=== PATIENT | female | born 1990 | race Caucasian/White ===

== ENCOUNTER 2018-11-26 17:01 | Emergency (ER) | payer OTHER ==
--- NOTE | 2018-11-26 17:09 | PDOC ---
Rapid Medical Evaluation Chief Complaint: Pain Time Seen by Provider: 11/26/18 17:07 Medical Evaluation: 11/26/18 17:07 HPI: L sided chest breast pain x2 weeks EXAM: deferred Orders: Nothing Discharge Disposition - Diagnosis Breast pain in female - Referrals - Patient Instructions - Post Discharge Activity
[2018-11-26 17:11] VITALS: BP 128/90; PULSE 89; TEMP 98.2; BMI 19.9
--- NOTE | 2018-11-26 17:51 | PDOC ---
History of Present Illness - General Chief Complaint: Pain Stated Complaint: BREAST PAIN Time Seen by Provider: 11/26/18 17:07 History Source: Patient - History of Present Illness Initial Comments: 11/26/18 19:28 Chief complaint: Left breast pain Patient 28-year-old female who is had about a month of left breast pain. No fever, shortness of breath, chest pain, not on control. Patient's last period was November 04. No recent travel and no family history of blood clots, DVT , PE GENERAL/CONSTITUTIONAL: No fever, weakness. dizziness HEAD, EYES, EARS, NOSE AND THROAT: No change in vision. No ear pain or discharge. No sore throat. CARDIOVASCULAR: No chest pain RESPIRATORY: No shortness of breath or cough GASTROINTESTINAL: No pain, nausea, vomiting, diarrhea or constipation GENITOURINARY: No dysuria MUSCULOSKELETAL: No neck or back pain SKIN: No rash, + left breast NEUROLOGIC: No headache, vertigo, loss of consciousness, or loss of sensation. GENERAL: The patient is awake, alert, and fully oriented, in no acute distress. HEAD: Normal with no signs of trauma. EYES: Pupils equal, round and reactive to light, sclera anicteric, conjunctiva clear. ENT: pharynx: no erythema, no exudate, uvula midline NECK: supple CHEST: clear, nontender, rest symmetrical, no palpable masses, no discharge from nipples, no erythema, mild tenderness on the lateral and inferior aspect of the breast, no rib pain or tenderness. Rr ABD: soft, nontender EXTREMITIES: Normal range of motion, no edema. NEUROLOGICAL: Normal speech, normal gait. SKIN: Warm, Dry 11/26/18 19:30 Past History - Past Medical History Allergies/Adverse Reactions: Allergies Allergy/AdvReac Type Severity Reaction Status Date / Time No Known Allergies Allergy Verified 11/26/18 17:08 COPD: No - Suicide/Smoking/Psychosocial Hx Smoking History: Never smoked Have you smoked in the past 12 months: No Information on smoking cessation initiated: No Hx Alcohol Use: No Drug/Substance Use Hx: No *Physical Exam - Vital Signs Last Vital Signs Temp Pulse Resp BP Pulse Ox 98.2 F 89 16 128/90 100 11/26/18 17:08 11/26/18 17:08 11/26/18 17:08 11/26/18 17:08 11/26/18 17:08 Medical Decision Making - Medical Decision Making 11/26/18 19:30 Patient with 1 month of left breast pain, which seems to be soft tissue pain, there is no other findings, no shortness of breath, patient's vitals are stable , no tachycardia, oxygenation is 100, patient is perc negative. Patient is unsure if she is , we discussed doing a test here but she has a test at home and felt more comfortable doing it at home. We had long conversation regarding regular checkups by DELICATESSEN DEPARTMENT MANAGER, she has not seen one in the 4 year she's been in the [facility]. He was explained to her that it would be very important for her to follow-up with DELICATESS[employer] DEPARTMENT MANAGER this coming week for evaluation, further diagnostics to make sure she doesn't have anything serious and get a mammogram, ultrasound to ensure she does not have breast cancer. There are no signs of Signs of infection. Discussed issues, findings, results, applicable medications and treatments and follow-up. All these were understood and all questions were answered *DC/Admit/Observation/Transfer Diagnosis at time of Disposition: Breast pain in female - Discharge Dispostion Disposition: HOME Condition at time of disposition: Stable - Referrals Referrals: Ruthy Villalpando MD [Staff Physician] - - Patient Instructions Additional Instructions: As discussed, you wanted to go home and do a test. And not have one done in the emergency department. Is very important for you to follow-up with her life consultant regarding her breast pain. It needs to be fully evaluated. The DELICATESSEN DEPARTMENT MANAGER will decide if you need a mammogram, ultrasound or other testing to make sure you do not have a serious problem or breast cancer - Post Discharge Activity
== END 2018-11-26 18:10 | disposition home or self-care (01) ==
LOC: JERFT 17:01
DX: N64.4 Mastodynia (principal)
CPT/HCPCS: 99281-25

== ENCOUNTER 2019-08-09 09:35 | Inpatient (IN) | payer OTHER ==
[2019-08-09] MEDS ORDERED: DINOPROSTONE 10 MG VAGINAL SUPPOSITORY VG ONE (10:15)
--- NOTE | 2019-08-09 10:38 | HP ---
Past Medical History - Admission Chief Complaint: Elective induction History of Present Illness: 29 yo , @ 40 weeks gestation, EDC 08/06/19, admitted for induction of labor. History Source: Patient Limitations to Obtaining History: No Limitations - Past Medical History ...: 1 ...Para: 0 - Past Surgical History Past Surgical History: Yes: None Hx Myomectomy: No Hx Transabdominal Cerclage: No - Smoking History Smoking history: Never smoked Have you smoked in the past 12 months: No - Alcohol/Substance Use Hx Alcohol Use: No - Social History Usual Living Arrangement: Yes: With Significant Other History of Recent Travel: No Home Medications - Allergies Allergies/Adverse Reactions: Allergies Allergy/AdvReac Type Severity Reaction Status Date / Time No Known Allergies Allergy Verified 08/09/19 15:42 - Home Medications Home Medications: Ambulatory Orders Pnv No.95/Ferrous Fum/Folic AC [ Formula] 1 each PO DAILY 08/01/19 Family Medical History Family History: Unremarkable Review of Systems - Review of Systems Constitutional: reports: No Symptoms Eyes: reports: No Symptoms HENT: reports: No Symptoms Neck: reports: No Symptoms Cardiovascular: reports: No Symptoms Respiratory: reports: No Symptoms Gastrointestinal: reports: No Symptoms Genitourinary: reports: No Symptoms Breasts: reports: No Symptoms Reported Musculoskeletal: reports: No Symptoms Integumentary: reports: No Symptoms Neurological: reports: No Symptoms Endocrine: reports: No Symptoms Hematology/Lymphatic: reports: No Symptoms Psychiatric: reports: No Symptoms Pain Intensity: 0 Physical Exam - Maternity Constitutional: Yes: No Distress Eyes: Yes: Conjunctiva Clear HENT: Yes: Atraumatic Neck: Yes: Supple Cardiovascular: Yes: Regular Rate and Rhythm Lungs: Clear to auscultation - Abdominal Exam/OB Number of Fetuses: Single Presentation: Vertex - Vaginal Exam/OB Dilatation (cm): Finger Effacement (%): 70 Presentation: Vertex/Position Station: -2 - Physical Exam Integumentary: Yes: WNL ...Motor Strength: WNL Psychiatric: Yes: Alert, Oriented Problem List - Problems (1) 40 weeks gestation of Problems reviewed: Yes Code(s): Z3A.40 - 40 WEEKS GESTATION OF Assessment/Plan Postdates Admit for cervidil induction
[2019-08-09] MEDS ORDERED: DEXTROSE 5%-LACTATED RINGERS 1,000 ML IV SCH (10:45)
[2019-08-09 11:18] VITALS: BMI 27.3
[2019-08-09 11:20] LABS: BASO % 0.3 % (0-2.0); EOS % 1.1 % (0-4.5); HEMATOCRIT 37.5 % (32.4-45.2); HEMOGLOBIN 12.8 GM/dL (10.7-15.3); LYMPH % 13.2 % (8-40); MCH 29.4 pg (25.7-33.7); MCHC 34.1 g/dl (32.0-36.0); MEAN CELL VOLUME 86.1 fl (80-96); MEAN PLT VOLUME 10.3 fl (7.5-11.1); MONO % 9.2 % (3.8-10.2); NEUT % 76.2 % (42.8-82.8); PLATELET COUNT 222 K/MM3 (134-434); RBC 4.35 M/mm3 (3.60-5.2); RDW 15.4 % (11.6-15.6); WHITE BLOOD COUNT 11.2 K/mm3 (4.0-10.0)
[2019-08-09 11:31] LABS: INR 0.94 (0.83-1.09); PROTHROMBIN TIME (PATIENT) 11.1 SEC (9.7-13.0)
[2019-08-09 11:34] LABS: ACTIVATED PTT 25.9 SECONDS (25.2-36.5)
[2019-08-09 11:43] LABS: BLOOD UREA NITROGEN 8.9 mg/dL (7-18); CALCIUM 8.8 mg/dL (8.5-10.1); CREATININE 0.5 mg/dL (0.55-1.3)
[2019-08-09] MEDS ORDERED: MAG HYDROX/AL HYDROX/SIMETH 30 ML UNIT-DOSE CUP PO ONE (12:15)
[2019-08-09] MEDS ORDERED: BUTORPHANOL TARTRATE 1 MG/ML VIAL IVPUSH PRN (22:50)
[2019-08-09] MEDS ORDERED: PROMETHAZINE HCL 25 MG/1 ML VIAL IVPUSH ONE (22:50)
--- NOTE | 2019-08-09 22:57 | PN ---
Progress Note (short form) - Note Progress Note: 29 yo , admitted for cervidil induction for postdates. She's seen and evaluated, she c/o mild discomfort. FHR : 140-150's, reassuring [place] : + irregular contractions VE : /-2 Cervidil removed A/P : Postdates S/P cervidil Analgesia Start Pitocin in 30 mins Problem List - Problems (1) 40 weeks gestation of Code(s): Z3A.40 - 40 WEEKS GESTATION OF
[2019-08-09] MEDS ORDERED: OXYTOCIN 30 UNITS in 0.9% NS 30 UNIT/500 ML INFUS.BAG IVPB SCH (23:00)
[2019-08-10] MEDS ORDERED: BUTORPHANOL TARTRATE 1 MG/ML VIAL ONE ×2 (00:02)
[2019-08-10] MEDS ORDERED: PROMETHAZINE HCL 25 MG/1 ML VIAL ONE (00:02)
[2019-08-10] MEDS ORDERED: OXYTOCIN 30 UNITS in 0.9% NS 30 UNIT/500 ML INFUS.BAG IVPB ONE (00:03)
[2019-08-10] MEDS ORDERED: CITRIC ACID/SODIUM CITRATE 30 ML UNIT-DOSE CUP PO ONE (00:15)
[2019-08-10] MEDS ORDERED: MAG HYDROX/AL HYDROX/SIMETH 30 ML UNIT-DOSE CUP PO ONE (00:15)
[2019-08-10] MEDS ORDERED: FENTANYL/BUPIVACAINE/NS/PF - PCEA - 50 ML DISP.SYRIN EP ONE (04:29)
[2019-08-10] MEDS: ELECTROLYTE-148 SOLN 1,000 ML IV SCH ×2 (04:30→07:45)
[2019-08-10] MEDS ORDERED: ELECTROLYTE-148 SOLN 500 ML IV ONE (04:30)
[2019-08-10] MEDS: FENTANYL/BUPIVACAINE/NS/PF - PCEA - 50 ML DISP.SYRIN EP SCH (05:05)
[2019-08-10] MEDS ORDERED: NALOXONE HCL 0.4 MG/ML VIAL IVPUSH PRN (05:26)
[2019-08-10] MEDS ORDERED: LIDOCAINE HCL 1% PRESERVATIVE FREE - 30ML VIAL ONE (07:41)
[2019-08-10 08:52] LABS: POC NITRAZINE POS
[2019-08-10] MEDS ORDERED: METHYLERGONOVINE MALEATE 0.2 MG/1 ML AMP IM PRN (09:12)
[2019-08-10] MEDS ORDERED: BISACODYL 10 MG SUPP.RECT RC PRN (09:12)
[2019-08-10] MEDS ORDERED: BENZOCAINE 20% 57 GM BOTTLE TP PRN (09:12)
[2019-08-10] MEDS ORDERED: BENZOCAINE 28 GM HEMORRHOIDAL OINTMENT TP PRN (09:12)
[2019-08-10] MEDS ORDERED: WITCH HAZEL 50% (TUCKS) 40 PAD/JAR PAD TP PRN (09:12)
--- NOTE | 2019-08-10 09:17 | PN ---
Delivery - Delivery Vaginal Delivery: Spontaneous Type of Anesthesia: Epidural Episiotomy/Laceration: Midline, 3rd degree EBL (cc): 300 Delivery, Single - [place] Feeding Plan Initial Plan: Exclusive throughout hospitalization Remarks - Remarks Remarks: Normal spontaneous vaginal delivery of a live boy over midline episiotomy extending to third degree laceration. Nose / Oropharynx suctioned @ perineum. Cord around the body clamped and cut after 2 minutes Baby handed to nurse. Placenta expelled spontaneously intact. Laceration repaired with 2.0 Chromic and 2.0 Biosyn. Mother in stable condition.
[2019-08-10] MEDS: OXYTOCIN 20 UNITS in 0.9% NS 20 UNIT/1,000 ML INFUS.BAG IV SCH ×2 (09:40→13:37)
[2019-08-10] MEDS: PRENATAL VITAMINS W/ FOLIC ACID TABLET (FP) PO SCH (09:43)
[2019-08-10] MEDS: IBUPROFEN 600 MG TABLET (FP) PO PRN ×2 (09:44→20:48)
[2019-08-10] MEDS: FERROUS SO4 325 MG TABLET (FP) PO SCH ×2 (09:45→21:57)
[2019-08-10] MEDS: ACETAMINOPHEN 325 MG TABLET (FP) PO PRN ×2 (09:45→20:47)
[2019-08-10] MEDS ORDERED: OXYTOCIN 20 UNITS in 0.9% NS 20 UNIT/1,000 ML INFUS.BAG IV ONE (13:34)
[2019-08-10] MEDS: SENNOSIDES/DOCUSATE COMBO (SENNA PLUS) TABLET (UD) PO PRN (20:50)
[2019-08-11] MEDS: FENTANYL/BUPIVACAINE/NS/PF - PCEA - 50 ML DISP.SYRIN EP SCH (07:19)
[2019-08-11] MEDS: ACETAMINOPHEN 325 MG TABLET (FP) PO PRN ×2 (08:03→19:15)
[2019-08-11] MEDS: IBUPROFEN 600 MG TABLET (FP) PO PRN ×2 (08:03→19:14)
[2019-08-11 08:16] LABS: BASO % 0.3 % (0-2.0); HEMATOCRIT 31.7 % (32.4-45.2); HEMOGLOBIN 10.6 GM/dL (10.7-15.3); LYMPH % 10.7 % (8-40); MCHC 33.3 g/dl (32.0-36.0); MEAN CELL VOLUME 86.9 fl (80-96); MEAN PLT VOLUME 9.4 fl (7.5-11.1); MONO % 7.7 % (3.8-10.2); NEUT % 80.3 % (42.8-82.8); PLATELET COUNT 216 K/MM3 (134-434); RBC 3.65 M/mm3 (3.60-5.2); RDW 15.5 % (11.6-15.6); WHITE BLOOD COUNT 18.3 K/mm3 (4.0-10.0)
[2019-08-11] MEDS ORDERED: CEFAZOLIN 1 GM/D5W 1 GM/50 ML BAG IVPB ONE (08:32)
--- NOTE | 2019-08-11 08:32 | PN ---
Post Progress Note - Subjective Subjective: 29 yo Para 1 status post vaginal delivery, seen and evaluated. Doing well. Post Day: 1 Type of Delivery: Vital Signs: Vital Signs Temperature 97.6 F 08/11/19 05:50 Pulse Rate 112 H 08/11/19 05:50 Respiratory Rate 20 08/11/19 05:50 Blood Pressure 95/58 L 08/11/19 05:50 O2 Sat by Pulse Oximetry (%) 99 08/10/19 07:30 Breast Exam: Yes: Soft Uterus: Yes: Fundus Firm Abdomen/GI: Yes: Abdomen soft, Tolerating PO Lochia: Yes: Rubra Lochia, amount: Moderate Extremities: Yes: Calves non-tender Perineum: Yes: Laceration (Healing) Activity: Ambulating - Labs Labs: CBC WBC 18.3 K/mm3 (4.0-10.0) H 08/11/19 07:51 RBC 3.65 M/mm3 (3.60-5.2) 08/11/19 07:51 Hgb 10.6 GM/dL (10.7-15.3) L 08/11/19 07:51 Hct 31.7 % (32.4-45.2) L D 08/11/19 07:51 MCV 86.9 fl (80-96) 08/11/19 07:51 MCH 29.0 pg (25.7-33.7) 08/11/19 07:51 MCHC 33.3 g/dl (32.0-36.0) 08/11/19 07:51 RDW 15.5 % (11.6-15.6) 08/11/19 07:51 Plt Count 216 K/MM3 (134-434) 08/11/19 07:51 MPV 9.4 fl (7.5-11.1) 08/11/19 07:51 Absolute Neuts (auto) 14.7 K/mm3 (1.5-8.0) H 08/11/19 07:51 Neutrophils % 80.3 % (42.8-82.8) 08/11/19 07:51 Lymphocytes % 10.7 % (8-40) 08/11/19 07:51 Monocytes % 7.7 % (3.8-10.2) 08/11/19 07:51 Eosinophils % 1.0 % (0-4.5) 08/11/19 07:51 Basophils % 0.3 % (0-2.0) 08/11/19 07:51 Nucleated RBC % 0 % (0-0) 08/11/19 07:51 Problem List - Problems (1) 40 weeks gestation of Problems reviewed: Yes Code(s): Z3A.40 - 40 WEEKS GESTATION OF (2) Status post normal vaginal delivery Problems reviewed: Yes Code(s): GEF1324 - Assessment/Plan Status post vaginal delivery Leukocytosis Ancef 1 gram IVPB Analgesia as needed Repeat CBC in am
[2019-08-11] MEDS: PRENATAL VITAMINS W/ FOLIC ACID TABLET (FP) PO SCH (10:41)
[2019-08-11] MEDS: FERROUS SO4 325 MG TABLET (FP) PO SCH ×2 (10:41→22:16)
[2019-08-11] MEDS: SENNOSIDES/DOCUSATE COMBO (SENNA PLUS) TABLET (UD) PO PRN (22:15)
[2019-08-12] MEDS: ACETAMINOPHEN 325 MG TABLET (FP) PO PRN ×2 (05:58→14:40)
[2019-08-12] MEDS: IBUPROFEN 600 MG TABLET (FP) PO PRN ×2 (05:58→14:38)
--- NOTE | 2019-08-12 08:44 | DS ---
Physical Exam-DISTRICT WILDLIFE MANAGER Vital Signs: Vital Signs Temperature 98.0 F 08/11/19 21:43 Pulse Rate 104 H 08/11/19 21:43 Respiratory Rate 20 08/11/19 21:43 Blood Pressure 112/77 08/11/19 21:43 O2 Sat by Pulse Oximetry (%) 99 08/10/19 07:30 Constitutional: Yes: Well Nourished Eyes: Yes: Conjunctiva Clear HENT: Yes: Atraumatic Neck: Yes: Supple Cardiovascular: Yes: Regular Rate and Rhythm Respiratory: Yes: Regular Gastrointestinal: Yes: Normal Bowel Sounds External Genitalia: Yes: Normal Vaginal Exam: Yes: Normal Cervix: Yes: Normal Uterus: Yes: Firm ....Post : Yes: Uterus firm, Moderate lochia serosa Breast(s): Yes: WNL Extremities: Yes: WNL Neurological: Yes: Alert, Oriented ...Motor Strength: WNL Psychiatric: Yes: Alert, Oriented Labs: CBC, BMP 08/09/19 10:35 Delivery - Delivery Vaginal Delivery: Spontaneous Type of Anesthesia: Local, Epidural Episiotomy/Laceration: Midline, Perineal Extension/lac, 3rd degree EBL (cc): 300 Delivery, Single - Stages of Labor Date 1st Stage Initiatied: 08/10/19 Time 1st Stage Initiated: 00:00 Date 2nd Stage Initiated: 08/10/19 Time 2nd Stage Initiated: 07:30 Date of Delivery: 08/10/19 Time of Delivery: 08:33 Time Placenta Delivered: 08:35 - Condition of Health And Safety Coordinator/Still Photographer Present: No Infant Gender: Male Weight: 7 lb 13 oz Position: Right, OA Total Hours ROM (Hrs/Mins): 8h - 1 Minute Total Score: 9 5 Minutes Total Score: 9 - [place] Feeding Plan Initial Plan: Exclusive throughout hospitalization Discharge Summary Problems reviewed: Yes Reason For Visit: INDUCTION OF LABOR Current Active Problems 40 weeks gestation of (Acute) Status post normal vaginal delivery (Acute) Procedures: Principal: Normal vaginal delivery Hospital Course: Routine care Health Concerns: None Plan of Treatment: Analgesia F/U with MD in 6 weeks Goals: Resume regular activities in 6 weeks Condition: Good - Instructions Diet, Activity, Other Instructions: Regular diet No douching, no sexual intercourse x 6 weeks F/U with MD in 6 weeks Disposition: HOME - Home Medications Comprehensive Discharge Medication List: Ambulatory Orders Pnv No.95/Ferrous Fum/Folic AC [ Formula] 1 each PO DAILY 08/01/19
[2019-08-12 08:48] LABS: BASO % 0.3 % (0-2.0); EOS % 2.9 % (0-4.5); HEMATOCRIT 30.9 % (32.4-45.2); HEMOGLOBIN 10.5 GM/dL (10.7-15.3); LYMPH % 10.6 % (8-40); MCH 29.2 pg (25.7-33.7); MEAN PLT VOLUME 9.1 fl (7.5-11.1); MONO % 5.6 % (3.8-10.2); NEUT % 80.6 % (42.8-82.8); PLATELET COUNT 235 K/MM3 (134-434); RBC 3.59 M/mm3 (3.60-5.2); RDW 15.3 % (11.6-15.6); WHITE BLOOD COUNT 15.5 K/mm3 (4.0-10.0)
[2019-08-12 08:57] VITALS: BP 118/97; PULSE 97; TEMP 98.3
[2019-08-12] MEDS: FERROUS SO4 325 MG TABLET (FP) PO SCH (09:56)
[2019-08-12] MEDS: PRENATAL VITAMINS W/ FOLIC ACID TABLET (FP) PO SCH (09:56)
== END 2019-08-12 16:40 | disposition home or self-care (01) | DRG 542 ==
LOC: JLDR 09:35 → J3W 08-10 14:32
PROVIDERS: ADMIT Obstetrics & Gynecology; ATTEND Obstetrics & Gynecology
PROC: 0DQR0ZZ Repair Anal Sphincter, Open Approach (ICD-10-PCS; principal; 2019-08-10)
PROC: 10E0XZZ Delivery of Products of Conception, External Approach (ICD-10-PCS; 2019-08-10)
DX: O48.0 Post-term pregnancy (principal); O70.20 Third degree perineal laceration during delivery, unspecified; Z3A.40 40 weeks gestation of pregnancy; Z37.0 Single live birth
CPT/HCPCS: 36415; 59409; 80048; 83986-QW; 85025; 85610; 85730; 86593; 86850; 86900; 86901